=== PATIENT | male | born 1990 | race Caucasian/White ===

== ENCOUNTER 2018-09-23 02:48 | Emergency (ER) | payer SELFPAY ==
[2018-09-23 03:08] VITALS: RESP 20; O2SAT 98
--- NOTE | 2018-09-23 03:15 | C.PDOC ---
History Of Present Illness 27 year old male is brought to the ED by [place] [employer] for evaluation of alcohol intoxication. Patient is visiting from [place] was found intoxicated in the street and has no was to contact his brother. Patient denies SI/HI, hallucinations, CP, SOB, trauma, injury, fall. Time Seen by Provider: 09/23/18 03:12 Chief Complaint (Nursing): Substance Abuse History Per: Patient, EMS History/Exam Limitations: intoxication Onset/Duration Of Symptoms: Days Current Symptoms Are (Timing): Still Present Suicide/Self Injury Attempted (Context): None Modifying Factor(s): Alcohol Associated Symptoms: denies: Depression, Suicidal Thoughts, Suicidal Plan Recent travel outside of the [place]: No Additional History Per: Patient, EMS Past Medical History Reviewed: Historical Data, Nursing Documentation, Vital Signs Vital Signs: Last Vital Signs Temp 98.2 F 09/23/18 02:59 Pulse 75 09/23/18 02:59 Resp 20 09/23/18 02:59 BP 151/96 H 09/23/18 02:59 Pulse Ox 98 09/23/18 02:59 - Medical History PMH: No Chronic Diseases Surgical History: No Surg Hx Family History: States: Unknown Family Hx - Social History Hx Alcohol Use: No Hx Substance Use: No Review Of Systems Constitutional: Negative for: Fever, Chills Eyes: Negative for: Vision Change Cardiovascular: Negative for: Chest Pain Respiratory: Negative for: Shortness of Breath Gastrointestinal: Negative for: Nausea, Vomiting, Abdominal Pain Skin: Negative for: Rash Psych: Negative for: Depression, Suicidal ideation Physical Exam - Physical Exam Appears: Non-toxic, No Acute Distress Skin: Normal Color, Warm, Dry Head: Atraumatic, Normacephalic Eye(s): bilateral: Normal Inspection Neck: Normal ROM, Supple Chest: Symmetrical Cardiovascular: Rhythm Regular Respiratory: Normal Breath Sounds, No Rales, No Rhonchi, No Wheezing Gastrointestinal/Abdominal: Soft, No Tenderness, No Guarding, No Rebound Extremity: Normal ROM, No Tenderness, No Swelling Neurological/Psych: Oriented x3, Normal Speech, Normal Cognition Gait: Steady ED Course And Treatment O2 Sat by Pulse Oximetry: 98 (ON RA) Pulse Ox Interpretation: Normal Progress Note: Patient waiting for brother to pick him up. Pt is ambulatory in ED with steady gait in [facility], [facility] Disposition Counseled Patient/Family Regarding: Diagnosis, Need For Followup - Disposition Disposition: HOME/ ROUTINE Disposition Time: 03:14 Condition: STABLE Additional Instructions: Please follow up with PMD Return to ER as needed Instructions: Alcohol Abuse and Alcoholism (DC) Forms: [employer] (Nigerien) - Clinical Impression Clinical Impression: Alcohol abuse - PA / PSYCHOLOGICAL STRESS EVALUATOR / Resident Statement MD/DO has reviewed & agrees with the documentation as recorded. - Scribe Statement The provider has reviewed the documentation as recorded by the Scribe John Paul Chicas All medical record entries made by the Ladonnaibheather were at my direction and personally dictated by me. I have reviewed the chart and agree that the record accurately reflects my personal performance of the history, physical exam, medical decision making, and the department course for this patient. I have also personally directed, reviewed, and agree with the discharge instructions and disposition.
[2018-09-23 06:25] VITALS: BP 142/70; PULSE 84; TEMP 97.8
== END 2018-09-23 06:24 | disposition home or self-care (01) ==
LOC: C.ER 02:48
DX: F10.129 Alcohol abuse with intoxication, unspecified (principal)